=== PATIENT | female | born 1990 | race American Indian/Alaskan Native ===

== ENCOUNTER 2017-04-25 22:14 | Emergency (ER) | payer SELFPAY ==
[2017-04-25 22:44] VITALS: BP 134/84
== END 2017-04-26 02:44 | disposition left against medical advice (07) ==
LOC: ED 22:14
DX: R05 Cough (principal); Z53.21 Procedure and treatment not carried out due to patient leaving prior to being seen by health care provider

== ENCOUNTER 2022-04-28 14:19 | Emergency (ER) | payer OTHER | END 2022-04-28 16:22 | disposition left against medical advice (07) | LOC: ED 14:19 | DX: O46.91 Antepartum hemorrhage, unspecified, first trimester (principal); Z53.21 Procedure and treatment not carried out due to patient leaving prior to being seen by health care provider; Z3A.01 Less than 8 weeks gestation of pregnancy ==